=== PATIENT | female | born 1955 | race Caucasian/White ===

== ENCOUNTER 2022-06-20 07:23 | Outpatient (CLI) | payer OTHER, SELFPAY ==
--- NOTE | ~2022-06-20 | MR_ITS ---
EXAMINATION: MR shoulder RT wo con DATE: 06/20/2022 08:31 INDICATION: Chronic right shoulder pain TECHNIQUE: Magnetic resonance imaging (MRI) of the right shoulder was performed without intravenous c ontrast. Sequences included axial PD-weighted FS FSE, coronal oblique PD-weighted FS FSE, coronal obl ique T2-weighted FS FSE, sagittal PD-weighted FS FSE, and sagittal T1-weighted SE. COMPARISON: None. FINDINGS: Coracoacromial arch: The acromion undersurface is curved in morphology (type II). The coracoacromial ligament is normal. M ild to moderate acromioclavicular osteoarthritis. Rotator cuff: Moderate supraspinatus and mild infraspinatus tendinopathy. There is a small mild articular sided tea r along the greater tuberosity footplate of the conjoined portion of the supraspinatus and infraspina tus tendons which measures 4 mm AP and involves up to one third of the tendon thickness. Mild subscap ularis tendinopathy without tear. The teres minor tendon is normal. Normal rotator cuff muscle bulk a nd signal. Biceps tendon, glenoid labrum and glenohumeral cartilage: Long head of the biceps tendon is normal. Glenoid labrum is normal. Mild partial-thickness cartilage loss with smooth chondral surface and without degenerative subchondral changes along the inferomedial aspect of the humeral head. Fluid: Physiologic amount of fluid in the glenohumeral joint and biceps tendon sheath. No loose osteochondr al bodies. Small amount of fluid in the subacromial/subdeltoid bursa consistent with mild bursitis. Bones: Bone alignment is normal. No fracture or pathologic marrow replacing process. IMPRESSION: 1. Moderate supraspinatus and mild infraspinatus and subscapularis tendinopathy with very small, mild partial-thickness tear along the greater facet footplate of the conjoined portion of the supraspinat us and infraspinatus tendons. 2. Mild subacromial/subdeltoid bursitis. 3. Mild to moderate acromioclavicular and mild glenohumeral osteoarthritis. Reviewed, dictated and finalized at location [facility] IMPRESSION: 1. Moderate supraspinatus and mild infraspinatus and subscapularis tendinopathy with very small, mild partial-thickness tear along the greater facet footplate of the conjoined portion of the supraspinatus and infraspinatus tendons. 2. Mild subacromial/subdeltoid bursitis. 3. Mild to moderate acromioclavicular and mild glenohumeral osteoarthritis.
== END 2022-06-20 07:24 | disposition home or self-care (01) ==
PROVIDERS: PCP Family Medicine; Visit Provider Orthopaedic Surgery
DX: M19.011 Primary osteoarthritis, right shoulder (principal); M75.51 Bursitis of right shoulder
CPT/HCPCS: 73221